=== PATIENT | female | born 1955 | race American Indian/Alaskan Native ===

== ENCOUNTER 2019-09-03 11:23 | Emergency (ER) | payer OTHER ==
--- NOTE | 2019-09-03 12:17 | RAD REPORT ---
EXAM DESCRIPTION: Alex Single View09/03/2019 12:11 pm CLINICAL HISTORY: Chest pain COMPARISON: 2016 FINDINGS: The lungs appear clear of acute infiltrate. The heart is normal size IMPRESSION: No acute abnormalities displayed
[2019-09-03 12:26] LABS: Absolute Lymphocytes (CBC) 2.8 K/uL (0.7-4.9); Basophils % 0.8 % (0-1.3); Hematocrit 40.2 % (36.0-45.0); Lymphocytes % 34.2 % (15.3-44.8); MPV 7.5 fL (7.6-11.3); RBC Red Blood Cell Count 4.48 M/uL (3.86-4.86)
[2019-09-03 13:15] LABS: Protime INR 0.9
[2019-09-03 13:40] LABS: ALT/SGPT 43 U/L (12-78); AST/SGOT 20 U/L (15-37); Albumin 3.5 g/dL (3.4-5.0); Alkaline Phosphatase 87 U/L (45-117); BUN Blood Urea Nitrogen 14 mg/dL (7-18); Bicarbonate 27 mmol/L (21-32); Bilirubin Direct < 0.1 mg/dL (0-0.2); Bilirubin Total 0.2 mg/dL (0.2-1.0); Glucose Level 106 mg/dL (74-106); Magnesium 2.1 mg/dL (1.8-2.4); NT PRO-BNP 75 pg/mL (<125); Potassium 3.9 mmol/L (3.5-5.1); Protein, Total 7.6 g/dL (6.4-8.2); Sodium Level 140 mmol/L (136-145); Troponin (Emerg Dept Use Only) < 0.02 ng/mL (0.0-0.045)
--- NOTE | 2019-09-03 13:43 | EDPHYS ---
Physician Documentation [facility] Name: Corine Hernandes Age: 63 yrs Sex: Female : 1955 Arrival Date: 09/03/2019 Time: 11:25 Bed 8 Private MD: ED Physician Sandeep Garcia HPI: 09/02 13:01 This 63 yrs old Other Female presents to ER via Ambulatory with complaints of Chest jr8 Pain > 30 y/o. 13:01 The patient or guardian reports chest pain that is located primarily in the substernal jr8 area. Onset: gradually, 2 week(s) ago. The pain does not radiate. Associated signs and symptoms: The patient has no apparent associated signs or symptoms. The chest pain is described as sharp. Duration: The patient or guardian reports multiple episodes, that are intermittent. Modifying factors: The symptoms are alleviated by nothing. the symptoms are aggravated by deep breath. Severity of pain: At its worst the pain was mild in the emergency department the pain has resolved. The patient has experienced a previous episode. The patient has not recently seen a physician. Historical: - Allergies: 11:35 No Known Allergies; iw - Home Meds: 11:35 metoprolol tartrate 50 mg Oral tab [Active]; metformin 500 mg Oral Tb24 2 times per day iw [Active]; Simvastatin Oral once daily [Active]; losartan oral once daily [Active]; Omeprazole Oral [Active]; - PMHx: 11:35 High Cholesterol; Hypertension; Diabetes - NIDDM; iw - PSHx: 11:35 Appendectomy; iw - Immunization history:: Adult Immunizations not up to date. - Social history:: Smoking status: Patient reports the use of cigarette tobacco products, smokes one-half pack cigarettes per day. ROS: 13:01 Eyes: Negative for injury, pain, redness, and discharge, ENT: Negative for injury, jr8 pain, and discharge, Neck: Negative for injury, pain, and swelling, Respiratory: Negative for shortness of breath, cough, wheezing, and pleuritic chest pain, Abdomen/GI: Negative for abdominal pain, nausea, vomiting, diarrhea, and constipation, Back: Negative for injury and pain, MS/Extremity: Negative for injury and deformity, Skin: Negative for injury, rash, and discoloration, Neuro: Negative for headache, weakness, numbness, tingling, and seizure. 13:01 Cardiovascular: Positive for chest pain, Negative for edema, orthopnea, palpitations, paroxysmal nocturnal dyspnea. Exam: 13:01 Eyes: Pupils equal round and reactive to light, extra-ocular motions intact. Lids and jr8 lashes normal. Conjunctiva and sclera are non-icteric and not injected. Cornea within normal limits. Periorbital areas with no swelling, redness, or edema. ENT: Nares patent. No nasal discharge, no septal abnormalities noted. Tympanic membranes are normal and external auditory canals are clear. Oropharynx with no redness, swelling, or masses, exudates, or evidence of obstruction, uvula midline. Mucous membranes moist. Neck: Trachea midline, no thyromegaly or masses palpated, and no cervical lymphadenopathy. Supple, full range of motion without nuchal rigidity, or vertebral point tenderness. No Meningismus. Cardiovascular: Regular rate and rhythm with a normal S1 and S2. No gallops, murmurs, or rubs. Normal PMI, no JVD. No pulse deficits. Respiratory: Lungs have equal breath sounds bilaterally, clear to auscultation and percussion. No rales, rhonchi or wheezes noted. No increased work of breathing, no retractions or nasal flaring. Abdomen/GI: Soft, non-tender, with normal bowel sounds. No distension or tympany. No guarding or rebound. No evidence of tenderness throughout. Back: No spinal tenderness. No costovertebral tenderness. Full range of motion. Skin: Warm, dry with normal turgor. Normal color with no rashes, no lesions, and no evidence of cellulitis. MS/ Extremity: Pulses equal, no cyanosis. Neurovascular intact. Full, normal range of motion. Neuro: Awake and alert, GCS 15, oriented to person, place, time, and situation. Cranial nerves II-XII grossly intact. Motor strength 5/5 in all extremities. Sensory grossly intact. Cerebellar exam normal. Normal gait. 13:03 ECG was reviewed by the Attending Physician. [facility] Vital Signs: 11:31 BP 144 / 74; Pulse 66; Resp 16; Temp 97.2; Pulse Ox 98% on R/A; Weight 88.9 kg; Height iw 5 ft. 6 in. (167.64 cm); Pain 3/10; 13:01 BP 144 / 66; Pulse 55; Resp 16; Pulse Ox 100% on R/A; em 14:04 BP 152 / 65; Pulse 58; Resp 18; Pulse Ox 99% on R/A; em 11:31 Body Mass Index 31.63 (88.90 kg, 167.64 cm) iw MDM: 11:39 Patient medically screened. jr8 13:41 Data reviewed: vital signs, nurses notes, lab test result(s), EKG, radiologic studies, jr8 plain films, and as a result, I will discharge patient. Data interpreted: Pulse oximetry: on room air is 100 %. Interpretation: normal. Counseling: I had a detailed discussion with the patient and/or guardian regarding: the historical points, exam findings, and any diagnostic results supporting the discharge/admit diagnosis, lab results, radiology results, the need for outpatient follow up, a rn transplant, to return to the emergency department if symptoms worsen or persist or if there are any questions or concerns that arise at home. 13:42 Special discussion: Based on the patient's history, exam, and Dx evaluation, there is jr8 no indication for emergent intervention or inpatient Tx. It is understood by the patient/guardian that if the Sx's persist or worsen they need to return immediately for re-evaluation. 09/02 11:40 Order name: Basic Metabolic Panel; Complete Time: 13:41 8 09/02 11:40 Order name: CBC with Diff; Complete Time: 13:32 09/02 11:40 Order name: LFT's; Complete Time: 13:41 8 09/02 11:40 Order name: Magnesium; Complete Time: 13:41 8 09/02 11:40 Order name: NT PRO-BNP; Complete Time: 13:41 09/02 11:40 Order name: PT-INR; Complete Time: 13:32 8 09/02 11:40 Order name: Troponin (emerg Dept Use Only); Complete Time: 13:41 8 09/02 11:40 Order name: XRAY Chest (1 view); Complete Time: 12:20 8 09/02 11:40 Order name: EKG; Complete Time: 11:41 8 09/02 11:40 Order name: Cardiac monitoring; Complete Time: 12:18 09/02 11:40 Order name: EKG - Nurse/Tech; Complete Time: 12:18 09/02 11:40 Order name: IV Saline Lock; Complete Time: 12:18 09/02 11:40 Order name: Labs collected and sent; Complete Time: 12:18 09/02 11:40 Order name: O2 Per Protocol; Complete Time: 12:18 09/02 11:40 Order name: O2 Sat Monitoring; Complete Time: 12:18 09/02 12:28 Order name: Labs - recollect needed: recollect all labs; Complete Time: 13:26 eb EC: Rate is 59 beats/min. Rhythm is regular, Sinus bradycardia. QRS [place] is Normal. MO jr8 interval is prolonged at 206 msec. QRS interval is normal. QT interval is normal at 419 msec. No Q waves. T waves are Flattened in lead III. No ST changes noted. Clinical impression: 1st degree heart block. Interpreted by me. Reviewed by me. Administered Medications: No medications were administered Disposition: 14:06 Co-signature as Attending Physician, Sandeep Garcia MD. rn Disposition: 09/03/19 13:43 Discharged to Home. Impression: Chest pain, unspecified, Other chest pain. - Condition is Stable. - Discharge Instructions: Nonspecific Chest Pain, Chest Wall Pain. - Medication Reconciliation Form, Thank You Letter, Antibiotic Education, Prescription Opioid Use form. - Follow up: Bo Larios MD; When: 2 - 3 days; Reason: Recheck today's complaints, Continuance of care, Re-evaluation by your physician. - Problem is new. - Symptoms have improved. Signatures: Dispatcher [employer] [facility] Harrison Freeman RN RN em Williams, Irene, RN RN iw Nieto, Roman, MD MD rn Roszak, Josh, PA PA jr8 Lamar Rodriguez Corrections: (The following items were deleted from the chart) 14:05 13:43 09/03/2019 13:43 Discharged to Home. Impression: Chest pain, unspecified; Other em chest pain. Condition is Stable. Forms are Medication Reconciliation Form, Thank You Letter, Antibiotic Education, Prescription Opioid Use. Follow up: Bo Larios; When: 2 - 3 days; Reason: Recheck today's complaints, Continuance of care, Re-evaluation by your physician. Problem is new. Symptoms have improved. jr8
--- NOTE | 2019-09-03 13:43 | ER ---
Nurse's Notes [facility] Name: Corine Hernandes Age: 63 yrs Sex: Female : 1955 Arrival Date: 09/03/2019 Time: 11:25 Bed 8 Private MD: Diagnosis: Chest pain, unspecified;Other chest pain Presentation: 09/02 11:31 Chief complaint: Patient states: last week had chest pain, intermittent, sharp, went iw away and came back yesterday, denies SOB, pain worsens when she takes a deep breath, has chronic cough from smoking, denies new cough, denies fever pain does not radiate. Coronavirus screen: Patient denies fever greater than 100.4F, cough, shortness of breath, or difficulty breathing. Proceed with normal triage process. Ebola Screen: Patient negative for fever greater than or equal to 101.5 degrees Fahrenheit, and additional compatible Ebola Virus Disease symptoms Patient denies exposure to infectious person. Patient denies travel to an Ebola-affected area in the 21 days before illness onset. No symptoms or risks identified at this time. Initial Sepsis Screen: Does the patient meet any 2 criteria? No. Patient's initial sepsis screen is negative. Does the patient have a suspected source of infection? No. Patient's initial sepsis screen is negative. Risk Assessment: Do you want to hurt yourself or someone else? Patient reports no desire to harm self or others. 11:31 Method Of Arrival: Ambulatory iw 11:31 Acuity: JAY 3 iw Historical: - Allergies: 11:35 No Known Allergies; iw - Home Meds: 11:35 metoprolol tartrate 50 mg Oral tab [Active]; metformin 500 mg Oral Tb24 2 times per day iw [Active]; Simvastatin Oral once daily [Active]; losartan oral once daily [Active]; Omeprazole Oral [Active]; - PMHx: 11:35 High Cholesterol; Hypertension; Diabetes - NIDDM; iw - PSHx: 11:35 Appendectomy; iw - Immunization history:: Adult Immunizations not up to date. - Social history:: Smoking status: Patient reports the use of cigarette tobacco products, smokes one-half pack cigarettes per day. Screenin:26 Abuse screen: Denies threats or abuse. Nutritional screening: No deficits noted. em Tuberculosis screening: No symptoms or risk factors identified. Fall Risk None identified. Assessment: 12:00 General: Appears in no apparent distress. comfortable, Behavior is calm, cooperative, em appropriate for age, Denies fever. Pain: Complains of pain in chest Pain does not radiate. Pain began 1 week ago. Neuro: Level of Consciousness is awake, alert, obeys commands, Oriented to person, place, time, situation, Appropriate for age. Cardiovascular: Reports chest pain, Capillary refill < 3 seconds Patient's skin is warm and dry. Rhythm is sinus bradycardia. Respiratory: Airway is patent Respiratory effort is even, unlabored, Respiratory pattern is regular, symmetrical, Denies cough, shortness of breath. GI: Patient currently denies nausea, vomiting. Derm: Skin is intact, is healthy with good turgor, Skin is pink, warm \T\ dry. Musculoskeletal: Capillary refill < 3 seconds, Range of motion: intact in all extremities. 13:00 Reassessment: Patient appears in no apparent distress at this time. Patient and/or em family updated on plan of care and expected duration. Pain level reassessed. Patient is alert, oriented x 3, equal unlabored respirations, skin warm/dry/pink. Patient states feeling better. Patient states symptoms have improved. 14:05 Reassessment: Patient appears in no apparent distress at this time. Patient and/or em family updated on plan of care and expected duration. Pain level reassessed. Patient is alert, oriented x 3, equal unlabored respirations, skin warm/dry/pink. Vital Signs: 11:31 BP 144 / 74; Pulse 66; Resp 16; Temp 97.2; Pulse Ox 98% on R/A; Weight 88.9 kg; Height iw 5 ft. 6 in. (167.64 cm); Pain 3/10; 13:01 BP 144 / 66; Pulse 55; Resp 16; Pulse Ox 100% on R/A; em 14:04 BP 152 / 65; Pulse 58; Resp 18; Pulse Ox 99% on R/A; em 11:31 Body Mass Index 31.63 (88.90 kg, 167.64 cm) iw ED Course: 11:25 Patient arrived in ED. fj1 11:33 Triage completed. iw 11:36 Arm band placed on. iw 11:39 Lenny Hale PA is PHCP. jr8 11:39 Sandeep Garcia MD is Attending Physician. jr8 11:46 Harrison Freeman, RN is Primary Nurse. em 12:00 Patient maintains SpO2 saturation greater than 95% on room air. em 12:10 XRAY Chest (1 view) In Process Unspecified. EDMS 12:10 Initial lab(s) drawn, by me, sent to lab. Inserted saline lock: 20 gauge in right Blood iw collected. 12:26 Patient has correct armband on for positive identification. Bed in low position. Call em light in reach. Side rails up X2. Pulse ox on. NIBP on. 13:15 Lab(s) recollected, by me, sent to lab. 3 13:42 Bo Larios MD is Referral Physician. jr8 14:02 No provider procedures requiring assistance completed. IV discontinued, intact, em bleeding controlled, No redness/swelling at site. Pressure dressing applied. Administered Medications: No medications were administered Outcome: 13:43 Discharge ordered by . jr8 14:02 Discharged to home ambulatory. em 14:02 Condition: good 14:02 Discharge instructions given to patient, Instructed on discharge instructions, follow up and referral plans. Demonstrated understanding of instructions, follow-up care. 14:05 Patient left the ED. em Signatures: Dispatcher [employer] [facility] Harrison Freeman, Denise Calderon RN, RN RN Lenny Hale PA PA [facility] Marixa Montes formerly [facility] Delio Santana fj1
[2019-09-03 14:23] VITALS: TEMP 97.2
[2019-09-03 14:26] VITALS: BP 152/65; O2SAT 99
--- NOTE | 2019-09-03 14:36 | EKG ---
Test Date: 2019-09-03 Test Time: 11:58:04 Angiography Technologist: EVELINE MEASUREMENT RESULTS: Intervals: Rate: 59 PA: 206 QRSD: 92 QT: 424 QTc: 419 [place]: P: -32 PA: 206 QRS: 63 T: 18 INTERPRETIVE STATEMENTS: Unusual P axis, possible ectopic atrial bradycardia Abnormal ECG Compared to ECG 09/29/2011 05:26:39 Sinus rhythm no longer present First degree AV block no longer present Electronically Signed On 09-03-19 14:35:46 CDT by Bo Larios
== END 2019-09-03 14:05 | disposition home or self-care (01) ==
LOC: ER 11:23
DX: R07.89 Other chest pain (principal); R94.31 Abnormal electrocardiogram [ECG] [EKG]; E11.9 Type 2 diabetes mellitus without complications; E78.00 Pure hypercholesterolemia, unspecified; I10 Essential (primary) hypertension; F17.210 Nicotine dependence, cigarettes, uncomplicated; Z79.84 Long term (current) use of oral hypoglycemic drugs; Z79.899 Other long term (current) drug therapy
CPT/HCPCS: 36415; 71045; 80048; 80076; 83735; 83880; 84484; 85025; 85610; 93005; 99285

== ENCOUNTER 2019-09-03 22:15 | Emergency (ER) | payer OTHER ==
[2019-09-03] MEDS ORDERED: NA CHLORIDE 0.9% 1,000 ML ONE (23:02)
[2019-09-03 23:21] LABS: Protime INR 0.84
[2019-09-03 23:49] LABS: Urine Blood 2+ (NEG); Urine Glucose NEGATIVE (NEG); Urine Protein NEGATIVE (NEG)
[2019-09-04 00:16] LABS: Bicarbonate 27 mmol/L (21-32); Potassium 4.1 mmol/L (3.5-5.1); Sodium Level 141 mmol/L (136-145)
[2019-09-04 00:17] LABS: ALT/SGPT 44 U/L (12-78); AST/SGOT 24 U/L (15-37); Albumin 3.5 g/dL (3.4-5.0); Alkaline Phosphatase 100 U/L (45-117); BUN Blood Urea Nitrogen 12 mg/dL (7-18); Bilirubin Direct < 0.1 mg/dL (0-0.2); Bilirubin Total 0.2 mg/dL (0.2-1.0); Glucose Level 120 mg/dL (74-106); Lipase 116 U/L (73-393); Magnesium 2.2 mg/dL (1.8-2.4); NT PRO-BNP 70 pg/mL (<125); Protein, Total 7.9 g/dL (6.4-8.2); Troponin (Emerg Dept Use Only) < 0.02 ng/mL (0.0-0.045)
[2019-09-04 00:39] LABS: Hematocrit 39.4 % (36.0-45.0); RBC Red Blood Cell Count 4.41 M/uL (3.86-4.86)
[2019-09-04 00:40] LABS: Absolute Lymphocytes (CBC) 2.7 K/uL (0.7-4.9); Basophils % 0.6 % (0-1.3); Lymphocytes % 28.6 % (15.3-44.8); MPV 7.4 fL (7.6-11.3)
[2019-09-04] MEDS ORDERED: AMOX/K CLAV 875 MG TAB ONE (00:52)
--- NOTE | 2019-09-04 01:19 | EDPHYS ---
Physician Documentation [facility] Name: Corine Hernandes Age: 63 yrs Sex: Female : 1955 Arrival Date: 09/03/2019 Time: 22:18 Bed 20 Private MD: ED Physician Matt Villagomez HPI: 09/02 23:25 This 63 yrs old Other Female presents to ER via Ambulatory with complaints of luna Difficulty Swallowing. 23:25 The patient presents with sore throat. The patient describes throat pain as raw, luna scratchy. Onset: The symptoms/episode began/occurred just prior to arrival. Severity of symptoms: At their worst the symptoms were mild, in the emergency department the symptoms are unchanged. Associated signs and symptoms: The patient has no apparent associated signs or symptoms. The patient has not experienced similar symptoms in the past. Historical: - Allergies: 22:38 No Known Allergies; bb - Home Meds: 22:38 losartan Oral once daily [Active]; metformin 500 mg Oral Tb24 2 times per day [Active]; bb metoprolol tartrate 50 mg Oral tab [Active]; Omeprazole Oral [Active]; Simvastatin Oral once daily [Active]; - PMHx: 22:38 Diabetes - NIDDM; High Cholesterol; Hypertension; bb - PSHx: 22:38 Appendectomy; bb - Immunization history:: Adult Immunizations unknown. - Social history:: Smoking status: Patient reports the use of cigarette tobacco products, smokes one-half pack cigarettes per day, Patient/guardian denies using alcohol. - Family history:: not pertinent. ROS: 23:25 Constitutional: Negative for fever, chills, and weight loss, Eyes: Negative for injury, luna pain, redness, and discharge, Neck: Negative for injury, pain, and swelling, Cardiovascular: Negative for chest pain, palpitations, and edema, Respiratory: Negative for shortness of breath, cough, wheezing, and pleuritic chest pain, Abdomen/GI: Negative for abdominal pain, nausea, vomiting, diarrhea, and constipation, Back: Negative for injury and pain, : Negative for injury, bleeding, discharge, and swelling, MS/Extremity: Negative for injury and deformity, Skin: Negative for injury, rash, and discoloration, Neuro: Negative for headache, weakness, numbness, tingling, and seizure, Psych: Negative for depression, anxiety, suicide ideation, homicidal ideation, and hallucinations, Allergy/Immunology: Negative for hives, rash, and allergies, Endocrine: Negative for neck swelling, polydipsia, polyuria, polyphagia, and marked weight changes, Hematologic/Lymphatic: Negative for swollen nodes, abnormal bleeding, and unusual bruising. 23:25 ENT: Positive for sore throat. Exam: 23:25 Constitutional: This is a well developed, well nourished patient who is awake, alert, luna and in no acute distress. Head/Face: Normocephalic, atraumatic. Eyes: Pupils equal round and reactive to light, extra-ocular motions intact. Lids and lashes normal. Conjunctiva and sclera are non-icteric and not injected. Cornea within normal limits. Periorbital areas with no swelling, redness, or edema. Neck: Trachea midline, no thyromegaly or masses palpated, and no cervical lymphadenopathy. Supple, full range of motion without nuchal rigidity, or vertebral point tenderness. No Meningismus. Chest/axilla: Normal chest wall appearance and motion. Nontender with no deformity. No lesions are appreciated. Cardiovascular: Regular rate and rhythm with a normal S1 and S2. No gallops, murmurs, or rubs. Normal PMI, no JVD. No pulse deficits. Respiratory: Lungs have equal breath sounds bilaterally, clear to auscultation and percussion. No rales, rhonchi or wheezes noted. No increased work of breathing, no retractions or nasal flaring. Abdomen/GI: Soft, non-tender, with normal bowel sounds. No distension or tympany. No guarding or rebound. No evidence of tenderness throughout. Back: No spinal tenderness. No costovertebral tenderness. Full range of motion. Female : Normal external genitalia. Skin: Warm, dry with normal turgor. Normal color with no rashes, no lesions, and no evidence of cellulitis. MS/ Extremity: Pulses equal, no cyanosis. Neurovascular intact. Full, normal range of motion. Neuro: Awake and alert, GCS 15, oriented to person, place, time, and situation. Cranial nerves II-XII grossly intact. Motor strength 5/5 in all extremities. Sensory grossly intact. Cerebellar exam normal. Normal gait. Psych: Awake, alert, with orientation to person, place and time. Behavior, mood, and affect are within normal limits. 23:25 ENT: Posterior pharynx: Tonsils: bilaterally enlarged, with erythema, no exudate, Uvula: midline, edematous, erythema, swelling, that is mild, erythema, that is mild, exudate, is not appreciated. Vital Signs: 22:35 BP 174 / 65; Pulse 66; Resp 16 S; Temp 98.8(O); Pulse Ox 96% on R/A; Weight 88.9 kg bb (R); Height 5 ft. 6 in. (167.64 cm) (R); Pain 0/10; 09/03 00:00 BP 173 / 53; Pulse 66; Resp 16; Pulse Ox 99% on R/A; jb4 01:00 BP 154 / 53; Pulse 65; Resp 16; Pulse Ox 98% on R/A; jb4 09/02 22:35 Body Mass Index 31.63 (88.90 kg, 167.64 cm) bb MDM: 09/02 22:40 Patient medically screened. [facility] 23:25 Data reviewed: vital signs, nurses notes, lab test result(s), EKG, radiologic studies, luna plain films. 09/02 22:42 Order name: Basic Metabolic Panel [facility] 09/02 22:42 Order name: CBC with Diff; Complete Time: 01:18 luna 09/02 22:42 Order name: LFT's; Complete Time: 00:19 luna 09/02 22:42 Order name: Magnesium; Complete Time: 00:19 [facility] 09/02 22:42 Order name: NT PRO-BNP; Complete Time: 00:19 luna 09/02 22:42 Order name: PT-INR; Complete Time: 23:52 [facility] 09/02 22:42 Order name: Troponin (emerg Dept Use Only); Complete Time: 00:19 luna 09/02 22:42 Order name: XRAY Chest (1 view) [facility] 09/02 22:42 Order name: Lipase; Complete Time: 00:19 luna 09/02 22:42 Order name: Urine Culture [facility] 09/02 22:43 Order name: Basic Metabolic Panel; Complete Time: 00:19 EDMS 09/02 23:18 Order name: Urine Dipstick--Ancillary (enter results); Complete Time: 23:52 mw2 09/02 23:25 Order name: Strep; Complete Time: 00:32 [facility] 09/03 00:35 Order name: Throat Culture [facility] 09/02 22:42 Order name: EKG; Complete Time: 22:43 [facility] 09/02 22:42 Order name: Cardiac monitoring; Complete Time: 23:22 [facility] 09/02 22:42 Order name: EKG - Nurse/Tech; Complete Time: 23:22 [facility] 09/02 22:42 Order name: IV Saline Lock; Complete Time: 00:16 [facility] 09/02 22:42 Order name: Labs collected and sent; Complete Time: 23:22 [facility] 09/02 22:42 Order name: O2 Per Protocol; Complete Time: 23:22 [facility] 09/02 22:42 Order name: O2 Sat Monitoring; Complete Time: 23:22 [facility] 09/02 22:42 Order name: Urine Dipstick-Ancillary (obtain specimen); Complete Time: 00:16 [facility] Administered Medications: 09/03 00:00 Drug: NS 0.9% 1000 ml Route: IV; Rate: 125 ml/hr; Site: left antecubital; jb4 02:04 Follow up: IV Status: Order to discontinue infusion jb4 01:00 Drug: Augmentin 875 mg Route: PO; jb4 02:04 Follow up: Response: No adverse reaction jb4 Disposition: 09/04/19 01:19 Discharged to Home. Impression: Acute pharyngitis, Chest pain, unspecified, Tobacco abuse counseling, Tobacco use, Type 2 diabetes mellitus. - Condition is Stable. - Discharge Instructions: Nonspecific Chest Pain, Type 2 Diabetes Mellitus, Diagnosis, Adult, Pharyngitis, Steps to Quit Smoking, Smoking Hazards, Nonspecific Chest Pain, Upkv-ke-Lupo, Pharyngitis, Qyue-ro-Zaot, Aspirin and Your Heart, Sore Throat, Aofq-gs-Ewon, Type 2 Diabetes Mellitus, Diagnosis, Adult, Ujyy-[id number]. - Prescriptions for Augmentin 875- 125 mg Oral Tablet - take 1 tablet by ORAL route every 12 hours for 7 days; 1 tablet. - Medication Reconciliation Form, Thank You Letter, Antibiotic Education, Prescription Opioid Use form. - Follow up: Private Physician; When: 2 - 3 days; Reason: Recheck today's complaints, Continuance of care, Re-evaluation by your physician. Follow up: Bo Larios; When: 2 - 3 days; Reason: Recheck today's complaints, Continuance of care, Re-evaluation by your physician. - Problem is new. - Symptoms have improved. Signatures: Dispatcher [employer] [facility] Matt Villagomez MD MD cha Ballard, Brenda, RN RN Max Milton, RN RN jb4 Corrections: (The following items were deleted from the chart) 09/02 23:35 22:43 Head Brain Wo [id number] ordered. [facility] 09/03 02:05 01:19 09/04/2019 01:19 Discharged to Home. Impression: Acute pharyngitis; Chest pain, jb4 unspecified; Tobacco abuse counseling; Tobacco use; Type 2 diabetes mellitus. Condition is Stable. Discharge Instructions: Nonspecific Chest Pain, Type 2 Diabetes Mellitus, Diagnosis, Adult, Pharyngitis, Steps to Quit Smoking, Smoking Hazards, Nonspecific Chest Pain, Yvka-jw-Rcuf, Pharyngitis, Djlw-si-Vjlz, Aspirin and Your Heart, Sore Throat, Umhu-ja-Brjj, Type 2 Diabetes Mellitus, Diagnosis, Adult, Layi-vy-Aahm. Prescriptions for Augmentin 875-125 mg Oral Tablet - take 1 tablet by ORAL route every 12 hours for 7 days; 1 tablet. and Forms are Medication Reconciliation Form, Thank You Letter, Antibiotic Education, Prescription Opioid Use. Follow up: Private Physician; When: 2 - 3 days; Reason: Recheck today's complaints, Continuance of care, Re-evaluation by your physician. Follow up: Bo Larios; When: 2 - 3 days; Reason: Recheck today's complaints, Continuance of care, Re-evaluation by your physician. Problem is new. Symptoms have improved. luna
--- NOTE | 2019-09-04 01:19 | ER ---
Nurse's Notes [facility] [place] Name: Corine Hernandes Age: 63 yrs Sex: Female : 1955 Arrival Date: 09/03/2019 Time: 22:18 Bed 20 Private MD: Diagnosis: Acute pharyngitis;Chest pain, unspecified;Tobacco abuse counseling;Tobacco use;Type 2 diabetes mellitus Presentation: 09/02 22:35 Chief complaint: Patient states: she was seen here earlier today for chest pain but bb when she was eating dinner at approx 1900 she noticed it seemed like she was having trouble swallowing. Coronavirus screen: Patient denies fever greater than 100.4F, cough, shortness of breath, or difficulty breathing. Proceed with normal triage process. Ebola Screen: No symptoms or risks identified at this time. Initial Sepsis Screen: Does the patient meet any 2 criteria? No. Patient's initial sepsis screen is negative. Does the patient have a suspected source of infection? No. Patient's initial sepsis screen is negative. Risk Assessment: Do you want to hurt yourself or someone else? Patient reports no desire to harm self or others. Onset of symptoms was September 03, 2019. 22:35 Method Of Arrival: Ambulatory bb 22:35 Acuity: JAY 3 bb Historical: - Allergies: 22:38 No Known Allergies; bb - Home Meds: 22:38 losartan Oral once daily [Active]; metformin 500 mg Oral Tb24 2 times per day [Active]; bb metoprolol tartrate 50 mg Oral tab [Active]; Omeprazole Oral [Active]; Simvastatin Oral once daily [Active]; - PMHx: 22:38 Diabetes - NIDDM; High Cholesterol; Hypertension; bb - PSHx: 22:38 Appendectomy; bb - Immunization history:: Adult Immunizations unknown. - Social history:: Smoking status: Patient reports the use of cigarette tobacco products, smokes one-half pack cigarettes per day, Patient/guardian denies using alcohol. - Family history:: not pertinent. Screenin:50 Abuse screen: Denies threats or abuse. Nutritional screening: No deficits noted. jb4 Tuberculosis screening: No symptoms or risk factors identified. Fall Risk None identified. Assessment: 22:50 General: Appears in no apparent distress. comfortable, Behavior is calm, cooperative, jb4 appropriate for age. Pain: Denies pain. Neuro: Level of Consciousness is awake, alert, obeys commands, Oriented to person, place, time, situation. Cardiovascular: Patient's skin is warm and dry. Respiratory: Airway is patent Respiratory effort is even, unlabored, Respiratory pattern is regular, symmetrical. GI: No signs and/or symptoms were reported involving the gastrointestinal system. : No signs and/or symptoms were reported regarding the genitourinary system. EENT: No signs and/or symptoms were reported regarding the EENT system. Derm: Skin is intact, Skin is pink, warm \T\ dry. Musculoskeletal: Circulation, motion, and sensation intact. Range of motion: intact in all extremities. 09/03 00:00 Reassessment: Patient appears in no apparent distress at this time. Patient and/or jb4 family updated on plan of care and expected duration. Pain level reassessed. Patient is alert, oriented x 3, equal unlabored respirations, skin warm/dry/pink. 01:00 Reassessment: Patient appears in no apparent distress at this time. Patient and/or jb4 family updated on plan of care and expected duration. Pain level reassessed. Patient is alert, oriented x 3, equal unlabored respirations, skin warm/dry/pink. 01:59 Reassessment: Patient appears in no apparent distress at this time. Patient and/or jb4 family updated on plan of care and expected duration. Pain level reassessed. Patient is alert, oriented x 3, equal unlabored respirations, skin warm/dry/pink. PT verbalized understanding of d/c and follow up instructions. ambulated out of ED with steady gait. Vital Signs: 09/02 22:35 BP 174 / 65; Pulse 66; Resp 16 S; Temp 98.8(O); Pulse Ox 96% on R/A; Weight 88.9 kg bb (R); Height 5 ft. 6 in. (167.64 cm) (R); Pain 0/10; 09/03 00:00 BP 173 / 53; Pulse 66; Resp 16; Pulse Ox 99% on R/A; jb4 01:00 BP 154 / 53; Pulse 65; Resp 16; Pulse Ox 98% on R/A; jb4 09/02 22:35 Body Mass Index 31.63 (88.90 kg, 167.64 cm) ED Course: 09/02 22:18 Patient arrived in ED. mr 22:37 Triage completed. 22:38 Arm band placed on Patient placed in an exam room, on a stretcher, on pulse oximetry. mikala 22:40 Matt Villagomez MD is Attending Physician. luna 22:47 Max Jeong, RN is Primary Nurse. jb4 22:50 Patient has correct armband on for positive identification. Bed in low position. Call jb4 light in reach. Side rails up X 1. Pulse ox on. NIBP on. 23:23 XRAY Chest (1 view) In Process Unspecified. [facility] 09/03 00:00 Inserted saline lock: 22 gauge in left antecubital area, using aseptic technique. Blood jb4 collected. 01:19 Bo Larios MD is Referral Physician. [facility] 02:03 No provider procedures requiring assistance completed. IV discontinued, intact, jb4 bleeding controlled, No redness/swelling at site. Pressure dressing applied. Administered Medications: 00:00 Drug: NS 0.9% 1000 ml Route: IV; Rate: 125 ml/hr; Site: left antecubital; jb4 02:04 Follow up: IV Status: Order to discontinue infusion jb4 01:00 Drug: Augmentin 875 mg Route: PO; jb4 02:04 Follow up: Response: No adverse reaction jb4 Outcome: 01:19 Discharge ordered by . [facility] 02:05 Discharged to home ambulatory. jb4 02:05 Condition: stable 02:05 Discharge instructions given to patient, Instructed on discharge instructions, follow up and referral plans. medication usage, Demonstrated understanding of instructions, follow-up care, medications, Prescriptions given X 1. 02:05 Patient left the ED. jb4 Signatures: Dispatcher [employer] [facility] Matt Villagomez MD MD cha Rivera, Mary Marta Lynn RN RN Max Milton, MAI RN jb4
[2019-09-04 02:14] VITALS: TEMP 98.8
[2019-09-04 02:16] VITALS: BP 154/53; O2SAT 98
--- NOTE | 2019-09-04 08:07 | RAD REPORT ---
EXAM DESCRIPTION: Alex Single View09/03/2019 11:22 pm CLINICAL HISTORY: Chest pain COMPARISON: September 03, 2019 FINDINGS: The lungs appear clear of acute infiltrate. The heart is normal size IMPRESSION: No acute abnormalities displayed
--- NOTE | 2019-09-04 08:08 | EKG ---
Test Date: 2019-09-03 Test Time: 23:26:41 Bank Clerk: RAUL MEASUREMENT RESULTS: Intervals: Rate: 63 SC: 220 QRSD: 96 QT: 428 QTc: 437 [place]: P: 65 SC: 220 QRS: 38 T: 36 INTERPRETIVE STATEMENTS: Poor data quality, interpretation may be adversely affected Sinus rhythm with 1st degree AV block Otherwise normal ECG Compared to ECG 09/03/2019 11:58:04 First degree AV block now present Electronically Signed On 09-04-19 08:07:35 CDT by Bo Larios
--- NOTE | 2019-09-05 14:23 | EKG ---
Test Date: 2019-09-03 Test Time: 23:27:25 Concrete Building Assembler: RAUL MEASUREMENT RESULTS: Intervals: Rate: 64 TX: 218 QRSD: 98 QT: 422 QTc: 435 [place]: P: 70 TX: 218 QRS: 35 T: 38 INTERPRETIVE STATEMENTS: Sinus rhythm with 1st degree AV block Otherwise normal ECG Compared to ECG 09/03/2019 23:26:41 No significant changes Electronically Signed On 09-05-19 14:22:42 CDT by Bo Larios
== END 2019-09-04 02:05 | disposition home or self-care (01) ==
LOC: ER 22:15
DX: J02.9 Acute pharyngitis, unspecified (principal); R07.9 Chest pain, unspecified; E11.9 Type 2 diabetes mellitus without complications; Z72.0 Tobacco use; Z71.6 Tobacco abuse counseling; I10 Essential (primary) hypertension; E78.00 Pure hypercholesterolemia, unspecified; F17.210 Nicotine dependence, cigarettes, uncomplicated
CPT/HCPCS: 96361; 93005 ×2; 87070; 87088; 85025; 87086; 80048; 36415; 83735; 85610; 80076; 87081; 81003; 84484; 83690; 83880; 71045; 96360; 99284; J7030

== ENCOUNTER → 2024-06-29 | Day surgery (SDC) | payer OTHER ==
[2011-09-30 07:58] VITALS: BP 135/64
--- NOTE | 2024-06-29 18:23 | RAD REPORT ---
Exam:Breast Core BX w/US Guidance CLINICAL HISTORY: Left breast mass R92.8 TECHNIQUE: The risks, benefits and alternatives to procedure were explained to the patient and informed consent obtained. Prior ultrasound was reviewed. Since the mass within the left breast lies adjacent to the chest wall I decided to use a 17-gauge coaxial needle. An 18-gauge needle was then advanced through this. Skin and deeper tissues were anesthetized with lidocaine. Under sonographic guidance 2 18-gauge needle passes were obtained into the lesion within the left vidal ast. 2 cm core specimens obtained. The specimens were given to pathology. Pressure was applied to the biopsy site. Patient experienced no immediate complication. IMPRESSION: Core biopsies of the left breast mass
== END ==
LOC: DS 08:00
PROVIDERS: ATTEND Family Medicine
DX: C50.912 Malignant neoplasm of unspecified site of left female breast (principal); Z17.0 Estrogen receptor positive status [ER+]; Z17.21 Progesterone receptor positive status; Z17.32 Human epidermal growth factor receptor 2 negative status
CPT/HCPCS: 19083; 88305

== ENCOUNTER 2025-03-17 07:25 | Day surgery (SDC) | payer OTHER ==
[2025-03-15 11:04] LABS: Sqamous Epithelial <5 /HPF (None Seen); Urine Micro Reflex YN NO BILL MICROSCOPIC
[2025-03-15 11:18] LABS: Anion Gap 7.9 mEq/L (5.0-15.0); BUN Blood Urea Nitrogen 20.0 mg/dL (7-18); Glucose Level 172.0 mg/dL (74-106); Potassium 3.9 mEq/L (3.5-5.1)
[2025-03-15 11:21] LABS: Absolute Lymphocytes (CBC) 1.7 K/uL (0.7-4.9); Hematocrit 37.3 % (36.0-45.0); Hemoglobin 12.3 g/dL (12.0-15.0); MCH 30.2 pg (27.0-35.0); MCHC 32.9 g/dL (32.0-36.0); MCV 91.6 fL (80-100); MPV 7.0 fL (7.6-11.3); Nucleated RBC Absolute Count 0.0 (0-0); Nucleated Red Blood Cells % 0.1 % (0-0); RBC Red Blood Cell Count 4.07 M/uL (3.86-4.86); White Blood Count 5.50 thou/uL (4.3-10.9)
[2025-03-17] MEDS: NA CHLORIDE 0.9% 1,000 ML ONE (08:00)
[2025-03-17] MEDS: HEPARIN 5000 UNIT/ML 1 ML VIAL ONE (08:08)
[2025-03-17] MEDS: SCOPOLAMINE HYDROBROMIDE PATCH TD ONE (08:08)
[2025-03-17] MEDS ORDERED: ROCURONIUM 50 MG/5 ML VIAL IV ONE (08:37)
[2025-03-17] MEDS ORDERED: LIDOCAINE 1% MPF 5 ML VIAL ONE (08:37)
[2025-03-17] MEDS ORDERED: FENTANYL CITR 100 MCG/2 ML ONE ×2 (08:37→09:51)
[2025-03-17] MEDS ORDERED: MIDAZOLAM HCL 2 MG/2 ML INJ ONE (08:37)
[2025-03-17] MEDS ORDERED: ONDANSETRON 4 MG/2 ML VIAL ONE (08:37)
[2025-03-17] MEDS ORDERED: GLYCOPYRROLATE 0.2 MG/ML SYR ONE (08:37)
[2025-03-17] MEDS ORDERED: KETAMINE HCL IN 0.9 % NACL 50 MG/5 ML SYRINGE IV ONE (08:42)
[2025-03-17] MEDS ORDERED: EPHEDRINE SULF 50 MG/ML VIAL ONE (09:13)
[2025-03-17] MEDS: CEFAZOLIN SODIUM 2 GM/VIAL ONE (09:15)
[2025-03-17] MEDS: BUPIVACAINE 0.25% PF 30 ML VIAL ONE (09:30)
[2025-03-17] MEDS: Ringers Lactate 1,000 ML IV ONE ×2 (10:32→12:58)
--- NOTE | 2025-03-17 13:05 | P.CNS ---
Date of Consult: 03/17/25 I was called for an intraoperative consultation by Dr. Salcido. She was performing a dissection down between the vaginal cuff and the rectum on the anterior wall and noted there was significant endometriosis in this region as such she did an extensive dissection in this area and wanted me to come and evaluate that to ensure there was no obvious rectal perforation. I entered the room patient was prepped and draped in the usual sterile fashion Dr. Malcolm was operating at this point I prepped and scrubbed appropriately into the room and inspected the area and found there to be no obvious defects or injury to the rectum based on the appearance however to ensure this I placed an occlusion clamp on the rectosigmoid colon ultimately I moved between the legs and placed a proctoscopy scope into the patient's rectum and and under occlusion irrigation was filled into the pelvis and the colon was bubble tested/lead tested using distention of the rectum via proctoscopy. There is no evidence of leakage bubble or any other concerning findings. The proctoscope within was used to decompress the area and the scope was withdrawn and the occlusion clamp removed. The colon appeared pink and viable without any issue. I then exited the room and allow Dr. Haddad to complete her surgery.'
[2025-03-17] MEDS ORDERED: PROMETHAZINE 25 MG TABLET PO PRN (13:17)
[2025-03-17] MEDS ORDERED: IBUPROFEN 200 MG TAB PO PRN (13:17)
[2025-03-17] MEDS ORDERED: PROMETHAZINE INJ 25 MG/ML AMP IV PRN (13:17)
--- NOTE | 2025-03-17 13:23 | P.BOP ---
Preoperative diagnosis: PMB endometrial polyp Postoperative diagnosis: same,stage 4 endometriosis,rectosig adhesions, retroperitoneal fibrosis Primary procedure: [facility] BSO, extensive endo rx, BHARAT rectosig and left ureterolysis Secondary procedure: rigid sig Dr tellez Boiler Repair Supervisor: Opal [place] Estimated blood loss: 75 Specimen: uterus tubes ovaries and pelvic washings, left USL and left lat wall endo Findings: complete CDS obliteration, left RP fibrosis Anesthesia: General Complications: None Drain(s): Urinary catheter Transferred to: Recovery Room Condition: Good
[2025-03-17] MEDS ORDERED: GABAPENTIN 300 MG CAP PO SCH (14:00)
[2025-03-17] MEDS ORDERED: HYDROCODONE/APAP 5/325 MG TAB ONE (16:33)
[2025-03-17] MEDS: HYDROCODONE/APAP 5/325 MG TAB PO PRN (16:35)
[2025-03-17 17:03] VITALS: BP 146/54; TEMP 97.7; O2SAT 96
[2025-03-17] MEDS ORDERED: METFORMIN HCL 500 MG TAB PO SCH (21:00)
--- NOTE | 2025-03-17 23:18 | OP ---
Date of Procedure: 03/17/2025 Surgeon: Ann Salcido MD Public Works Director: Opal [place]. Preoperative Diagnoses: Postmenopausal bleeding, endometrial polyp. Postoperative Diagnoses: Postmenopausal bleeding, endometrial polyp, stage IV endometriosis, rectosi gmoid adhesions, retroperitoneal fibrosis, especially left greater than the right. Primary procedure of rectosigmoid adhesions with cul-de-sac obliteration please specify. Procedures Performed: 1. Total laparoscopic hysterectomy, bilateral salpingo-oophorectomy, pelvic washings. 2. Extensive endometriosis excision. 3. Lysis of rectosigmoid adhesions and left ureterolysis. Lysis of adhesions to greater than 50% of the case. 4. Intraoperative consult Dr. Collazo for the rectosigmoid adhesions. Estimated Blood Loss: 75. Specimens: Uterus, tubes, ovaries, pelvic washings, left uterosacral ligament, left lateral wall end ometriosis. Findings: Complete cul-de-sac obliteration with left retroperitoneal fibrosis and the ureterolysis h ad to be performed in order for me to finish my case. The ovaries were scarred to the distal left and right uterosacral ligaments on the respective sides. Then, there was significant endometriosis of the distal uterosacral ligaments and the cul-de-sac was released and opened up by doing pararectal space dissection and dropping the colon down. Please ref er to Dr. Collazo's note for that rigid sigmoidoscopy. Anesthesia: General endotracheal. Complications: No. Drains: None. Disposition: Transferred to the recovery room in stable condition. Indications: The patient is a 69-year-old with breast cancer, who presented with postmenopausal blee ding. Ultrasound showed endometrial thickening and hysteroscopy, and endometrial polyp. Polypectomy and D and C were performed. No atypia or malignancy was noted; however, given the patient's history of endometrial polyp without other risk factors, increased risk of recurrence of polyps, progression to the endometrial cancer were reviewed and then she was undergoing breast cancer treatment. Once t he portion of her treatment was completed, discussion with Dr. Lazo and with a medical clearance fr om her primary care provider, Dr. Hogan. The patient was then consented for [facility] BSO, pelvic washings . Description Of Procedure: In the preoperative area, she was re-consented, taken back to OR, placed i n supine fashion on the operating table. General anesthesia was given. The daughter was present by her bedside and consent was obtained. After she was placed in a dorsal lithotomy position in [facility] abdomen was prepped with Chlora Prep; vulva, vagina, and perineum with Betadine and draped in a sterile fashion. Speculum placed to expose after time-out was done and SCDs were started, patient was grounded. Speculum placed to expos e the cervix. Anterior lip grasped with a single-tooth tenaculum, dilated to 15-Jordanian. Uterine man ipulator was fixed in place. However, there was a perforation of the manipulator as the uterus was v laura shallow and retroflex. However, this was left in place and Galaviz was placed to drain the bladder and attached to reach to gravity drainage bag. One cm infraumbilical incision made with a scalpel after injecting 0.25% Marcaine 10 mL at the skin a nd fascia. Then fascia opened with an 11 blade, tagged with 0 Vicryl sutures. Peritoneum entered bl untly. Angel was introduced and adequate insufflation upper abdominal surfaces were surveyed. Slig ht adhesions to the anterior abdominal wall to the bowel and omentum. The patient was then placed in T-peggy 10 mm suprapubic and two 5 ports were placed on the right and left lower quadrants. Later, t he left upper quadrant was used to retract the sigmoid colon by suturing the with a 3-0 Mo nocryl suture and passing it through the Ronni-Patricia needle and returning it in the left upper qu adrant and hooking it externally. Survey of the pelvic cavity shows stage IV endometriosis to complete cul-de-sac obliteration. So, th e first chance to be done was left ureterolysis. Left ureterolysis: The left ureter was identified at the level of the pelvic brim at the crossing of the IP by opening up the peritoneum both medially and laterally. Once this was identified, dissecti on was carried parallel to the ureter opening up the space between the ureter and IP. Then, the ovar y and endometriosis were noted. So, the ovary was dissected from the lateral wall and from the urete r towards the uterosacral ligament. Then dissection was performed laterally to separate the ureter f rom the lateral portion of the lateral wall. Then it was dissected from the medial leaf of the broad ligament all the way from the pelvic brim to the ureteric tunnel. The internal iliac was identified and the uterine branch was dissected and the ureteric tunnel was dissected. After all the anatomy was displayed and safeguarded, the endometriosis of the uterosacral ligament th at was retracting the ureter right above the level of the tunnel was cut sharply and the ureter was r eleased from this scar and retracted laterally. This scar and the endometriosis of the uterosacral ligament nodular tissue was excised and handed for permanent pathology. The lysis of adhesions from the right lateral wall to the ovary and the uterosacral ligament, so this was done in a similar fashion by opening of the peritoneum between the IP and the ureter. After gregg ntifying the ureter by opening up the lateral peritoneum and opening up the IP ligament, the medial l eaf of the broad ligament was dissected, keeping the ureter intact with it. Then the dissection whitlock ied towards the distal uterosacral and the ovary was dissected from the nodular implants at the dista l uterosacral once the ureter was dissected laterally. Then, I was came back to the endometriosis ex cision and cul-de-sac obliteration, and lysis of adhesions. The cul-de-sac was released of the rectosigmoid. The left pararectal space was opened up after the u reter was dissected laterally from the medial leaf of the broad ligament, staying medial to the utero sacral ligament between the uterosacral and rectosigmoid. The space was opened up blocking the fat w ith the colon. Dissection was performed all the way down to the pelvic floor. Then, the posterior v aginal wall was identified and dissection carried through here. Then on the right side, similar dis section was performed to open up the right paracolic gutter or the area between the sigmoid and the u terosacral peritoneum was opened up, then dissection was carried into the right pararectal space. Th en, this was dissected to the posterior vaginal wall and then the EEA Sizer was placed in the rectosi gmoid and the rectosigmoid was dissected away from the posterior vaginal wall and the distal portion with me in the proximal portion of the vaginal canal between the distal uterosacral ligaments. Once this scar was taken down, the entire colon was dropped down. Then Dr. Collazo was consulted to help us with the integrity check. [facility] BSO and pelvic washing were done at the onset of the case and LigaSure was used to take the round ligament on the left and right side. Then, the broad ligament was opened up of the anterior and pos terior peritoneum and bladder flap was raised. The vessels were cauterized and cut with the vessel s ealer and monopolar hook blade to separate the specimen and pulled it out through the vagina. The right ovary was severed no longer the tube from the main specimen as it was for the ease of disse ction on the left side. Both were retrieved. The vaginal cuff was closed with a simple angle 0 PDS suture and then three fig [id number] sutures in the middle. Excellent closure was obtained and support. After thorough irrigation, suction, and hemostasis was secured with the bipolar then David powder as well as Surgicel on left and right sidewalls. The ports were all removed after gas was desufflated. The bowel was released. Then, the patient was repositioned in a supine fashion. All the ports wer e removed. Then, gas was desufflated promptly. Fascia at the umbilicus was closed with a tagged 0 V icryl sutures tied to each other and simple 0 Vicryl suture at the suprapubic fascial site. All skin incisions closed with interrupted 4-0 Monocryl. Steri-Strips and bandages were placed. Galaviz was r emoved. The vaginal occluder was removed. The patient was taken back to PACU in stable condition an d daughter debriefed. ASCENCION/FRANCESCA Voice ID: [id number] Report ID: [id number]
[2025-03-18] MEDS ORDERED: HOME MED 1 EA UNK (Multivitamin [Multivitamin] Tablet) PO SCH (09:00)
[2025-03-18] MEDS ORDERED: ANASTROZOLE 1 MG TAB PO SCH (09:00)
[2025-03-18] MEDS ORDERED: HOME MED 1 EA UNK (Losartan Potassium [Losartan Potassium] 100 MG Tablet) PO SCH (09:00)
[2025-03-18] MEDS ORDERED: ZINC AMINO ACID CHELATE PO SCH (09:00)
[2025-03-18] MEDS ORDERED: HOME MED 1 EA UNK (Ascorbic Acid [Vitamin C] 1,000 MG Tablet) PO SCH (09:00)
[2025-03-18] MEDS ORDERED: HOME MED 1 EA UNK (Vitamin D3/Vitamin K2 (Mk4) [K2 Plus D3 Tablet] Tablet) PO SCH (09:00)
[2025-03-18] MEDS ORDERED: METOPROLOL XL 50 MG TAB PO SCH (09:00)
[2025-03-18] MEDS ORDERED: ATORVASTATIN 80 MG TAB PO SCH (09:00)
== END 2025-03-17 16:49 | disposition home or self-care (01) ==
LOC: OR 07:25
PROVIDERS: ATTEND Obstetrics & Gynecology
PROC: 0UT24ZZ Resection of Bilateral Ovaries, Percutaneous Endoscopic Approach (ICD-10-PCS; 2025-03-17)
PROC: 0UT74ZZ Resection of Bilateral Fallopian Tubes, Percutaneous Endoscopic Approach (ICD-10-PCS; 2025-03-17)
PROC: 0DNN4ZZ Release Sigmoid Colon, Percutaneous Endoscopic Approach (ICD-10-PCS; 2025-03-17)
PROC: 0TN74ZZ Release Left Ureter, Percutaneous Endoscopic Approach (ICD-10-PCS; 2025-03-17)
PROC: 0WBF4ZZ Excision of Abdominal Wall, Percutaneous Endoscopic Approach (ICD-10-PCS; 2025-03-17)
PROC: 0UBF4ZZ Excision of Cul-de-sac, Percutaneous Endoscopic Approach (ICD-10-PCS; 2025-03-17)
PROC: 0DJD8ZZ Inspection of Lower Intestinal Tract, Via Natural or Artificial Opening Endoscopic (ICD-10-PCS; 2025-03-17)
PROC: 0UT94ZZ Resection of Uterus, Percutaneous Endoscopic Approach (ICD-10-PCS; principal; 2025-03-17 08:30)
DX: N95.0 Postmenopausal bleeding (principal); N84.0 Polyp of corpus uteri; N72 Inflammatory disease of cervix uteri; N80.00 Endometriosis of the uterus, unspecified; K68.2 Retroperitoneal fibrosis; K66.0 Peritoneal adhesions (postprocedural) (postinfection); N83.8 Other noninflammatory disorders of ovary, fallopian tube and broad ligament
CPT/HCPCS: 58542; 58662; 45300; 85025; 81001; 80048; 36415; 86900; 86850; 86901; 82947 ×2; 88305; J3490; J1644; J2704; J2003; J2250; J3010 ×2; J1100; J2405; J7120 ×2; J7030; A4314